=== PATIENT | male | born 1970 | race Caucasian/White ===

== ENCOUNTER → 2016-07-24 | Day surgery (SDC) | payer OTHER ==
--- NOTE | 2016-07-23 21:39 | History & Physical Pre-Op ---
General Information and HPI History of Present Illness: Patient presents for evaluation of a left inguinal hernia. He has known about the hernia since last year at which time CT scan of the abdomen pelvis was performed for workup of new onset abdominal bloating. There was noted a fat- containing inguinal hernia which was observed. Patient states his main complaint is that of excessive bloating with inability to pass flatus. He can pass flatus with certain positions, most notably supine position. He tried [id number] probiotics without effect. His appetite is not change in his bowel function is not changed. Over the course of the past 6-9 months, his swelling and pain has increased in the left inguinal region. I have personally viewed the images of his CT abd/pelvis dated 07/2015. Allergies/Medications Allergies: Coded Allergies: No Known Allergies (07/16/16) Past History Medical History Neurological: migraine Gastrointestinal: GERD Musculoskeletal: osteoarthritis Surgical History Pertinent Surgical History: appendectomy Review of Systems Review of Systems: Patient reports no fatigue, no fever, no night sweats, no significant weight gain, no significant weight loss, and no exercise intolerance. He reports no abnormal moles, no jaundice, no hives, no eczema, and no rashes. He reports no swollen glands and no neck stiffness. He reports no cough, no wheezing, no shortness of breath, and no coughing up blood. He reports no chest pain, no arm pain on exertion, no shortness of breath when walking, no shortness of breath when lying down, no palpitations, and no known heart murmur. He reports normal appetite, no abdominal pain, no vomiting, no vomiting blood, no diarrhea, no belching, no constipation, no regurgitation, and no rectal bleeding. He reports no incontinence, no difficulty urinating, no hematuria, and no increased frequency. He reports no muscle aches, no muscle weakness, no arthralgias/joint pain, and no back pain. Exam & Diagnostic Data Physical Exam: Patient is a 45-year-old male. Constitutional: General Appearance: healthy-appearing, well-nourished, and well- developed. Level of Distress: no acute distress. Ambulation: ambulating normally. Head: Head: normocephalic and atraumatic. Cardiovascular: Heart Auscultation: regular rate and rhythm. Lungs: Respiratory effort: no dyspnea. Auscultation: good air movement and no wheezing. Back: Thoracolumbar Appearance: normal curvature. Abdomen: Inspection and Palpation: no tenderness, guarding, masses, rebound tenderness, or CVA tenderness and soft and non-distended. Bowel Sounds: normal. Liver: non-tender and no hepatomegaly. Spleen: non-tender and no splenomegaly. Hernia: inguinal (Moderate-sized left inguinal hernia, mostly reducible with residual incarcerated fatty tissue). Skin: Inspection and palpation: no rash, lesions, ulcer, induration, nodules, jaundice, or abnormal nevi and good turgor. Musculoskeletal:: Extremities: no cyanosis, edema, varicosities, or palpable cord. Motor Strength and Tone: normal tone and motor strength. Joints, Bones, and Muscles: no contractures, malalignment, tenderness, or bony abnormalities and normal movement of all extremities. Psychiatric: Insight: good judgement and insight. Mental Status: normal mood and affect and active and alert. Orientation: to time, place, and person. Memory: recent memory normal and remote memory normal. Assessment/Plan Assessment/Plan: Left inguinal hernia - Hernia is for the most part, reducible. However it does contain a small amount of incarcerated preperitoneal fat. I recommend he undergo laparoscopic left inguinal hernia repair with mesh. He inquires regarding the etiology of his bloating symptoms, and if it could be related to his hernia. My overall opinion is that his bloating symptoms seem to proceed the onset of his inguinal hernia and are likely unrelated. However one could postulate that intermittent incarceration could cause these types of symptoms. For that reason I recommend he undergo repair and observe his symptoms postoperatively. Discussed laparoscopic preperitoneal hernia repair with mesh, the need for general anesthesia to perform it and the outpatient nature of surgery. Discussed the outcomes of surgery including 3-5% recurrence rate, 1% infection and bleeding risk. Discussed the permanent nature of mesh for repair and need for removal if infection occurs. Discussed the small risk of testicular vessel injury and vas deferens injury (males). As Ranked By This Provider Problem List: 1. Inguinal hernia
[~2016-07-24] VITALS: Ht 180.3 cm; Wt 99.8 kg
--- NOTE | 2016-07-24 11:30 | Operative Report ---
Operative/Inv Procedure Report Surgery Date: 07/24/16 Name of Procedure: Laparoscopic left inguinal hernia repair Pre-Operative Diagnosis: Left inguinal hernia Post-Operative Diagnosis: Same Estimated Blood Loss: scant Surgeon/History Department Chair: GUNNER SHAW,JULIÁN Pena/Gonzales ESCALERA Anesthesia: general endotracheal tube Implants: Parietex mesh Operative/Procedure Note Note: After consent patient is brought to the operating room laid supine. General anesthesia was obtained and the abdomen was prepped and draped. Skin was anesthetized with local anesthesia and a transverse infraumbilical incision made sharply. We identified the rectus fascia and incised transversely. Stay sutures were placed. Rectus muscle was retracted laterally and a dissecting balloon placed posterior to it. It was inflated under direct vision the camera and replaced with a blunt Norris port. Gas was instilled. 2, 5 mm ports were placed in the infraumbilical midline after local anesthesia was instilled and under direct vision and camera. Began our dissection at the pubis and delineated the symphysis. Chepe's ligament was identified and cleared. Then dissected laterally and developed the iliopubic tract. The cord structures were circumferentially dissected. A large indirect sac and cord lipoma reduced and reflected medially. Once the dissection was completed a left-sided piece of Parietex mesh was placed in the cavity. It was placed around the cord structures re-create the internal ring and cover the femoral and direct spaces as well. Gas was allowed to escape on maintaining proper orientation of the mesh. The fascia was closed with 0 Vicryl suture. Skin incisions closed with 4 -0 Vicryl. Steri-Strips and sterile dressing applied. Sponge and needle counts are correct. Findings: Indirect CC: SHAWANDA SHAW,AN
== END ==
LOC: STS 01:40
DX: K40.90 Unilateral inguinal hernia, without obstruction or gangrene, not specified as recurrent (principal); K21.9 Gastro-esophageal reflux disease without esophagitis; M19.90 Unspecified osteoarthritis, unspecified site
CPT/HCPCS: C1781; J0690; J2250